=== PATIENT | female | born 1995 | race Caucasian/White ===

== ENCOUNTER 2021-12-08 22:45 | Emergency (ER) | payer OTHER ==
[2021-12-08 22:51] VITALS: BP 128/79; PULSE 85; RESP 18; TEMP 97.7; BMI 21.9
[2021-12-08] MEDS ORDERED: ALBUTEROL SO4 2.5/IPRATROPIUM 0.5 INH SOL 3 ML VIAL.NEB. NEB SCH ×2 (23:45)
[2021-12-08] MEDS ORDERED: DEXAMETHASONE LIQUID 0.5 MG/5 ML PO ONE (23:49)
[2021-12-08] MEDS ORDERED: NAPROXEN 500 MG TABLET PO ONE (23:51)
[2021-12-09] MEDS ORDERED: NAPROXEN 500 MG TABLET ONE (00:10)
[2021-12-09] MEDS ORDERED: DEXAMETHASONE SOD PHOSPHATE 10 MG/1 ML VIAL ONE (00:10)
[2021-12-09] MEDS ORDERED: AZITHROMYCIN 500 MG TABLET PO ONE (00:33)
[2021-12-09] MEDS ORDERED: AZITHROMYCIN 500 MG TABLET ONE (01:05)
== END 2021-12-09 01:14 | disposition home or self-care (01) ==
LOC: JER 22:45
PROC: 3E0F7GC Introduction of Other Therapeutic Substance into Respiratory Tract, Via Natural or Artificial Opening (ICD-10-PCS; principal; 2021-12-08)
DX: J20.9 Acute bronchitis, unspecified (principal); J45.909 Unspecified asthma, uncomplicated
CPT/HCPCS: 99283-25

== ENCOUNTER 2022-05-18 15:45 | Emergency (ER) | payer OTHER ==
[2022-05-18 15:59] VITALS: BP 142/72; PULSE 104; RESP 24; TEMP 98; BMI 21.9
[2022-05-18] MEDS ORDERED: SODIUM CHLORIDE 1,000 ML IV STA (16:54)
[2022-05-18] MEDS ORDERED: hydrOXYzine PAMOATE 50 MG CAPSULE (FP) PO ONE (16:54)
[2022-05-18] MEDS ORDERED: hydrOXYzine PAMOATE 50 MG CAPSULE (FP) ONE (17:19)
[2022-05-18 18:02] LABS: BASO % 0.8 % (0-2.0); EOS % 0.2 % (0-4.5); HEMOGLOBIN 13.6 GM/dL (10.7-15.3); LYMPH % 33.9 % (8-40); MCH 31.4 pg (25.7-33.7); MCHC 34.9 g/dl (32.0-36.0); MEAN PLT VOLUME 6.9 fl (7.5-11.1); MONO % 8.7 % (3.8-10.2); NEUT % 56.4 % (42.8-82.8); PLATELET COUNT 271 10^3/uL (134-434); RBC 4.33 M/mm3 (3.60-5.2); RDW 13.5 % (11.6-15.6); WHITE BLOOD COUNT 11.2 K/mm3 (4.0-10.0)
[2022-05-18 18:23] LABS: ALBUMIN 4.3 g/dl (3.4-5.0); BLOOD UREA NITROGEN 10.4 mg/dL (7-18); CALCIUM 9.3 mg/dL (8.5-10.1)
[2022-05-18 18:27] LABS: CREATININE 0.8 mg/dL (0.55-1.3)
[2022-05-18 18:28] LABS: TOT PROT 7.6 g/dl (6.4-8.2)
[2022-05-18 18:29] LABS: BILIRUBIN,TOTAL 0.9 mg/dL (0.2-1)
[2022-05-18 18:54] LABS: URINE APPEARANCE CLEAR; URINE BILIRUBIN NEGATIVE (NEGATIVE); URINE COLOR YELLOW; URINE GLUCOSE (UA) NEGATIVE (NEGATIVE); URINE KETONE 3+ (NEGATIVE); URINE LEUK ESTERASE NEGATIVE (NEGATIVE); URINE NITRITE NEGATIVE (NEGATIVE); URINE PROTEIN NEGATIVE (NEGATIVE)
[2022-05-18 19:14] LABS: HCG,QUALITATIVE URINE NEGATIVE
== END 2022-05-18 18:53 | disposition home or self-care (01) ==
LOC: JER 15:45
PROC: 3E0337Z Introduction of Electrolytic and Water Balance Substance into Peripheral Vein, Percutaneous Approach (ICD-10-PCS; principal; 2022-05-18)
DX: F41.9 Anxiety disorder, unspecified (principal)
CPT/HCPCS: 36415; 80053; 81003; 82550; 82553; 84703; 85025; 87086; 99284-25